=== PATIENT | male | born 1960 | race Caucasian/White ===

== ENCOUNTER 2022-12-17 13:00 | Emergency (ER) | payer BC ==
--- OUTSIDE RECORDS SUMMARY | 2022-12-17 13:04 | XMS REPORT | Continuity of Care Document ---
:1960 Author Organization [facility] t Address [address] [place] [address] Care Team Providers Name Role Phone Floyd GLORIA, Michelle Primary Care Physician Yoel Degroot MD Attending Clinician YOEL DEGROOT Attending Clinician Unavailable Doctor Unassigned, [place] Attending Clinician Unavailable Will Attending Clinician Unavailable SEBASTIAN CHILD Attending Clinician Unavailable Truong Fletcher MD [facility] Attending Clinician Unavailable Michelle Barrientos MD Attending Clinician Will Admitting Clinician Unavailable SEBASTIAN CHILD Admitting Clinician Unavailable Payers Payer Name Policy Type Policy Number Effective Date Expiration Date Kendy gurrola [place] REIRUEL [id number] 2018 00:00:00 BCBS (PPO) Problems Condition Condition Condition Status Onset Resolution Last Treating Co mments Source Name Details Category Date Date Treatment Clinician Date Total Total Problem Active [place] shoulder Shoulder 4-25 Family replacemen Replacemen 00:00: Pr actic t t 00 e Cyst of Cyst of Problem Active [place] thyroid Thyroid 3-12 Family 00:00: Practic 00 e Vitamin D Vitamin D Problem Active Farzana terrance deficiency Deficiency 2-10 Fa carlyle 00:00: Practic 00 e Hyperlipid Hyperlipid Problem Active V illage emia emia 2-10 Family 00:00: Practic 00 e Gastroesop Gastroesop Problem Active V illage hageal hageal 2-10 Family reflux Reflux 00:00: Practic disease Disease 00 e without without esophagiti Esophagiti s s Essential Essential Problem Active Farzana terrance hypertensi Hypertensi 1-13 Fa carlyle on on 00:00: Practic 00 e Essential Essential Disease Active [facility] hypert[facility]i hypertensi 1-21 Trisha kes on on 00:00: Medical 00 Center Benign Benign Problem Active [place] essential Essential 9-11 Fami ly hypertensi Hypertensi 00:00: Pr actic on on e Radiculopa Radiculopa Disease Active [facility] lumbar lumbar 00:00: Medical region region 00 Center Other and Other and Problem Active 2020-11-24 Memoria unspecifie unspecifie 03:45:24 l d d [place] hyperlipid hyperlipid emia emia Active Problem 11/24/2020 [facility] GERD GERD Problem Active 2020-11-24 Memor ia (gastroeso (gastroeso 03:45:24 l phageal phageal [place] reflux reflux disease) disease) Active Problem 11/24/2020 [facility] Vitamin D Vitamin D Problem Active 2020-11-24 Memoria deficiency deficiency 03:45:24 l Active [place] Problem 11/24/2020 [facility] Other Other Problem Active 2020-11-24 Memor ia hyperlipid hyperlipid 03:45:24 l emia emia Von Active Problem 11/24/2020 [facility] Thyroid Thyroid Problem Active 2020-11-24 Me moria cyst cyst 03:45:24 l Active Von Problem 11/24/2020 [facility] Benign Benign Problem Active 2020-11-24 Chavez josé miguel essential essential 03:45:24 l hypertensi hypertensi He rmann on on Active Problem 11/24/2020 [facility] Gastro-eso Gastro-es Problem Active 2020-11-24 Memoria phageal ophageal 03:45:24 l reflux reflux [place] disease disease without without esophagiti esophagiti s s Active Problem 11/24/2020 [facility] Essential Essential Problem Active 2020-11-24 Memoria hypertensi hypertensi 03:45:24 l on on Active Von Problem 11/24/2020 [facility] Left Left Diagnosis Active 2020-09-16 Mem oria shoulder shoulder 03:54:14 l pain pain [place] Active Diagnosis 09/16/2020 [facility] Preoperati Preoperat Diagnosis Active 2020-09-16 Memoria ve nahun 03:54:14 l clearance clearance Herm patti Active Diagnosis 09/16/2020 [facility] Encounter Encounter Diagnosis Active 2020-01-15 Memoria for for 02:45:46 l general general [place] adult adult medical medical examinatio examinatio n without n without abnormal abnormal findings findings Active Diagnosis 01/15/2020 [facility] Screening Screening Diagnosis Active 2019-11-23 Memoria for for 03:46:07 l prostate prostate Bob n cancer cancer Active Diagnosis 11/23/2019 [facility] Former Former Diagnosis Active 2020-01-15 Me moria smoker smoker 02:45:46 l Active Von Diagnosis 01/15/2020 [facility] Herpes Herpes Diagnosis Active 2016-04-06 Me moria simplex simplex 02:48:10 l Active Von Diagnosis 04/06/2016 [facility] No known No known Disease Unive rs active active ity of problems problems [facility] Allergies, Adverse Reactions, Alerts Allergy Allergy Status Severity Reaction(s) Onset Inactive Treating Comm ents Source Name Type Date Date Clinician NO KNOWN Drug Active Univers ALLERGIE Class ity of S [facility] NO KNOWN Allergy Active [facility] Family History Family Member Diagnosis Comments Start Date Stop Date Source Natural father Heart attack [facility] Natural father Hyperlipidemia [facility] Natural mother Hypertension [facility] Social History Social Habit Start Date Stop Date Quantity Comments Source History SDOH [facility] Alcohol Frequency Medical Center History SDOH [facility] Alcohol Std Medical Cente r Drinks History SDOH [facility] Alcohol Binge Medical Kendrick ter Exposure to 2022-04-21 2022-05-01 Not sure University SARS-CoV-2 00:00:00 10:11:00 [facility] (event) Branch Alcohol intake 2018-11-26 2018-11-26 [facility] (finding) TobaccoUse: 2016-04-01 2016-04-01 [facility] 00:00:00 00:00:00 Alcohol Comment 2014-07-29 2014-07-29 [address] [facility] 00:00[facility] 00[facility]00 Medical Center Tobacco use and 2014-07-29 2014-07-[address] [facility]isha kes exposure 00:00:00 00:00:00 Medical Center Sex Assigned At [address] [facility] 00:00:00 00:00:00 Medical Center Smoking Status Start Date Stop Date Source Former Smoker [place] Family P jun Unknown if ever smoked [facility] Never smoker [facility] Medications Ordered Filled Start Stop Current Ordering Indication Dosage Frequency Signature Comments Components Source Medication Medication Date Date Medication? Clinician (SIG) Name Name doxycycline 202- No [id number] 100mg Take 1 Univers hyclate 100 6-26 07-07 tablet by it y of mg tablet 00:00: 04:59 mouth 2 [place] 00 :[place] (two) Medical times Branch daily for 10 days. atorvastati Yes TAKE [facility] (LIPITOR) 2-18 ONE-HALF Luke s 40 MG 00:00: (1/2) Medical tablet 00 TABLET(S) Center BY MOUTH DAILY. atorvastati Yes TAKE [facility] (LIPITOR) 2-18 ONE-HALF Luke s 40 MG 00:00: (1/2) Medical tablet 00 TABLET(S) Center BY MOUTH DAILY. atorvastati Yes TAKE [facility] (LIPITOR) 2-18 ONE-HALF Luke s 40 MG 00:00: (1/2) Medical tablet 00 TABLET(S) Center BY MOUTH DAILY. Hydrochloro Yes Randy 1 tablet Memoria thiazide 1-19 Senan in the l 03:45: morning [place] 24 Hydrochloro 2020-0 Yes Randy 1 tablet Memoria thiazide 1-19 Senan in the l 03:45: morning Von 24 Taltz 2019-11 Yes Randy as Memoria 1-11 Senan directed l 03:54: Atorvastati 2020-1 Yes Randy 1 tablet Memoria n Calcium 1-11 Senan l 03:54: Taltz 2020-1 Yes Randy as Memoria 1-11 Senan directed l 03:54: 14 Atorvastati 2020-1 Yes Randy 1 tablet Memoria n Calcium 1-11 Senan l 03:54: 14 Gabapentin 2020-1 Yes Randy 1 capsule Memoria 1-02 Senan l 00:00: Gabapentin 2020-1 Yes Randy 1 capsule Memoria 1-02 Senan l 00:00: Atorvastati 2020-0 Yes Randy 1/2 tablet Memoria n Calcium 5-15 Senan l 02:46: Atorvastati 2020-0 Yes Randy 1/2 tablet Memoria n Calcium 5-15 Senan l 02:46: [place]-3-aci 2020-0 Yes Randy 2 capsules Memoria d Ethyl 5-14 Senan l Esters 00:00: Atorvastati 2020-0 Yes Randy 1 tablet Memoria n Calcium 5-14 Senan l 00:00: [place]-3-aci 2020-0 Yes Randy 2 capsules Memoria d Ethyl 5-14 Senan l Esters 00:00: Atorvastati 2020-0 Yes Randy 1 tablet Memoria n Calcium 5-14 Senan l 00:00: Lovaza 2020-0 Yes Randy 2 capsules Mem oria 2-10 Senan l 00:00: Vitamin D3 2020-0 Yes Randy 1 capsule Memoria 2-10 Senan l 00:00: Vitamin D3 2020-0 Yes Randy 1 capsule Memoria 2-10 Senan l 00:00: Lovaza 2020-0 Yes Randy 2 capsules Mem oria 2-10 Senan l 00:00: Vitamin D3 2020-0 Yes Randy 1 capsule Memoria 2-10 Senan l 00:00: Vitamin D3 2020-0 Yes Randy 1 capsule Memoria 2-10 Senan l 00:00: atorvastati 2020-0 2020- No TAKE [facility] (LIPITOR) 11-25 ONE-HALF Parminder es 40 MG 00:00: 00:00 (2) Medical tablet 00 :00 TABLET(S) Center BY MOUTH DAILY. atorvastati 2020- No TAKE [facility] (LIPITOR) 11-25 ONE-HALF Parminder es 40 MG 00:00: 00:00 (11/07) Medical tablet 00 :00 TABLET(S) Center BY MOUTH DAILY. Valtrex 2020-0 Yes Randy 1 tablet Chavez josé miguel -18 Chandrasen l 03:46: an Von Nexium 2020-0 Yes Randy 1 capsule Chavez josé miguel [facility] an Von Lisinopril 2020-0 Yes Randy 1 tablet M emoria 11-23 [facility] l 03:46: an Von Zovirax 2020-0 Yes Randy 1 Memoria 11-23 [facility] applicatio l 03:46: an n to Von 07 affected area Valtrex 2020-0 Yes Randy 1 tablet Chavez josé miguel [facility] Von Nexium 2020-0 Yes Randy 1 capsule Chavez josé miguel 18 [facility] 03:[facility]: an Von 07 Lisinopril 2020-0 Yes Randy 1 tablet M emoria 11-[facility] 03:[facility]: an Von 07 Zovirax 2020-0 Yes Randy 1 Memoria 11-23 [facility] applicatio l 03:46: an n to Von 07 affected area Hydrochloro 2020-0 Yes Randy 1 tablet Memoria thiazide 1-13 Senan in the l 00:00: morning Hydrochloro 2020-0 Yes Randy 1 tablet Memoria thiazide 1-13 Senan in the l 00:00: morning Lisinopril 2015-11 Yes Randy 1 tablet M emoria 11-10 [facility] 02[facility] an Von Atorvastati 2015-11 Yes Randy 1 tablet Memoria n Calcium 11-10 [facility] 02:51: an Von Lisinopril 2015-11 Yes Randy 1 tablet M emoria 11-10 Chandrasen l 02:51: an [place] 23 Atorvastati 2015-11 Yes Randy 1 tablet Memoria n Calcium 11-10 Chandrasen l 02:51: an Von 23 Nexium Yes Randy 1 capsule Chavez josé miguel 04-06 Chandrasen l 02:48: an [place] 10 Valtrex Yes Randy 1 tablet Chavez josé miguel 04-06 Chand[place]en l 02:48: an [place] 10 Zovirax Yes Randy 1 Memoria 04-06 Chandrasen applicatio l 02:48: an n to [place] 10 affected area Nexium Yes Randy 1 capsule Chavez josé miguel 04-06 Chand[place]en l 02:48: an [place] Valtrex Yes Randy 1 tablet Chavez josé miguel 04-06 Chand[place]en l 02:48: an [place] Zovirax Yes Randy 1 Memoria 04-06 Chandrasen applicatio l 02:48: an n to [place] [id number] affected area atorvastati atorvastati No 1 Q1D atorvastat Village n 20 mg n 20 mg in 20 mg Famil y tablet Take tablet Take tablet Practic 1 tablet 1 tablet Take 1 e every day every day tablet by oral by oral every day route as route as by oral directed directed route as for 90 for 90 directed days. days. for 90 days. hydrochloro hydrochloro No 1 Q1D [facility] thiazide 25 thiazide 25 othiazide Family mg tablet mg tablet 25 mg Prac tic Take 1 Take 1 tablet e tablet tablet Take 1 every day every day tablet by oral by oral every day route as route as by oral directed directed route as for 90 for 90 directed days. days. for 90 days. ondansetron ondansetron No [facility] 8 mg n 8 mg Family disintegrat disintegrat disintegra Practic ing tablet ing tablet ting e Place 1 Place [address] 1 twice a day twice a day tablet by by twice a translingua translingua day by l route as l route as translingu needed for needed for al route 3 days. 3 days. as needed for 3 days. Ally Canales [facility] Autoinjecto Autoinjecto Autoinject Family r 80 mg/mL r 80 mg/mL or 80 Pr actic subcutaneou subcutaneou mg/mL e s once a s once a subcutaneo month month us once a month Immunizations Ordered Filled Immunization Date Status Comments [facility] e Immunization Name Name JULIETTE 2022-05-01 Completed [facility] 00:00:00 [facility] COVID-19 vaccine, COVID-19 vaccine, 2021-03-05 Completed [facility] vector-nr, vector-nr, 00:00:00 Practice rS-ChAdOx1, PF, 0.5 rS-ChAdOx1, PF, 0.5 mL (AstraZeneca) mL (AstraZeneca) Covid-19 Vaccine 2021-02-[address] [facility] MRNA (PF) 12yr+ 00:00:00 Medical C enter (Pfizer/BioNTech)(I [id number]) Covid-19 Vaccine 2021-02-[address] [facility] Mrna (Pf) 00:00:00 [facility] (Pfizer/biontech) Covid-19 Vaccine 2021-02-[address] [facility] Mrna (Pf) 00:00:00 [facility] (Pfizer/biontech) COVID-19 vaccine, COVID-19 vaccine, 2021-02-19 Completed [facility] vector-nr, vector-nr, 00:00:00 Practice rS-ChAdOx1, PF, 0.5 rS-ChAdOx1, PF, 0.5 mL (AstraZeneca) mL (AstraZeneca) Covid-19 Vaccine 2021-01-[address] [facility] MRNA (PF) 12yr+ 00:00:00 Medical C enter (Pfizer/BioNTech)(I [id number]) Covid-19 Vaccine 2021-01-[address] [facility] Mrna (Pf) 00:00:00 [facility] (Pfizer/biontech) Covid-19 Vaccine 2021-01-[address] [facility] Mrna (Pf) 00:00:00 [facility] (Pfizer/biontech) Flucelvax 2020-08-17 Completed Selwyn Longoria 00:00:00 influenza, influenza, 2020-08-17 Completed [facility] seasonal, seasonal, 00:00:00 Practice intradermal, intradermal, preservative free preservative free Flucelvax 2020-08-17 Completed Carolynor rosaura Longoria 00:00:00 influenza, influenza, 2019-10-17 Completed [facility] seasonal, seasonal, 00:00:00 Practice injectable injectable influenza, influenza, 2015-07-17 Completed [facility] seasonal, seasonal, 00:00:00 Practice injectable, injectable, preservative free preservative free Vital Signs Vital Name Observation Time Observation Value Comments Source Systolic blood 2022-05-01 15:13:00 125 mm[Hg] [facility] Diastolic blood 2022-05-01 15:13:00 82 mm[Hg] Unive rsity [facility] Heart rate 2022-05-01 15:13:00 77 /min [facility] Body temperature 2022-05-01 15:13:00 36.67 [facility] Respiratory rate 2022-05-01 15:13:00 18 /min [facility] height 2022-05-01 15:13:00 182.9 cm [facility] Body weight 2022-05-01 15:13:00 81.647 kg [facility] BMI 2022-05-01 15:13:00 24.41 kg/m2 [facility] Oxygen saturation in 2022-05-01 15:13:00 99 /min [facility] Arterial blood by [facility] Pulse oximetry Branch Height 2021-12-02 00:00:00 72 [in_i] [facility] Practice BMI (Body Mass 2021-12-02 00:00:00 24.4 kg/m2 [facility] Practice Body Weight 2021-12-02 00:00:00 180 [lb_av] [facility] Practice BP Diastolic 2021-07-27 00:00:00 82 mm[Hg] [facility] Practice Height 2021-07-27 00:00:00 72 [in_i] [facility] Practice BMI (Body Mass 2021-07-27 00:00:00 23.8 kg/m2 [facility] Practice BP Systolic 2021-07-27 00:00:00 126 mm[Hg] [facility] Practice Body Weight 2021-07-27 00:00:00 175.6 [lb_av] [facility] Systolic (mm Hg) 2020-08-17 17:00:00 Chavez rial Von Height 2020-08-17 17:00:00 [facility] Weight 2020-08-17 17:00:00 [facility] Von Heart Rate 2020-08-17 17:00:00 [facility] [place] Temperature Oral (F) 2020-08-17 17:00:00 97.3 F [facility] [place] Diastolic (mm Hg) 2020-08-17 17:00:00 Mem orial [place] Systolic (mm Hg) 2019-12-16 13:00:00 Chavez rial Von Height 2019-12-16 13:00:00 [facility] Von Weight 2019-12-16 13:00:00 [facility] Von Heart Rate 2019-12-16 13:00:00 [facility] Von Temperature Oral (F) 2019-12-16 13:00:00 97.9 F [facility] [place] Diastolic (mm Hg) 2019-12-16 13:00:00 Mem orial Von Systolic (mm Hg) 2019-11-18 15:00:00 Chavez rial Von Height 2019-11-18 15:00:00 [facility] Von Weight 2019-11-18 15:00:00 [facility] [place] Heart Rate 2019-11-18 15:00:00 [facility] Von Temperature Oral (F) 2019-11-18 15:00:00 97.8 F [facility] [place] Diastolic (mm Hg) 2019-11-18 15:00:00 Mem orial Von Systolic (mm Hg) 2016-04-01 14:00:00 Chavez rial Von Height 2016-04-01 14:00:00 [facility] [place] Weight 2016-04-01 14:00:00 [facility] [place] Heart Rate 2016-04-01 14:00:00 [facility] Von Temperature Oral (F) 2016-04-01 14:00:00 98.1 F [facility] Diastolic (mm Hg) 2016-04-01 14:00:00 Mem orial [place] Procedures Procedure Date / Time Performed Performing Clinician Sourc e TDAP VACCINE, >11 2022-05-01 15:28:20 Yoel Degroot [facility] YRS, IM Medical Branch CONSENT/REFUSAL FOR 2022-05-01 15:07:20 Doctor Unassigned, No Un [facility] DIAGNOSIS AND Name Medical Branch TREATMENT Shoulder Surgery 2021-02-19 00:00:00 Village Asher flavia Practice Procedure on Shoulder [place] Shanthi carlyle Practice Plan of Care Planned Activity Planned Date Details Comments Source Future Scheduled Test 2022-11-[address] [facility] 00:00:00 (12+) [code = Medical Center DEPRESSION SCREENING (12+)] Future Scheduled Test 2022-07-07 INFLUENZA VACCINE (#1) [facility] 00:00:00 [code = INFLUENZA Medical Ce nter VACCINE (#1)] Future Scheduled Test 2021-11-[address] [facility] 00:00:00 (procedure) [code = [facility] [id number]] Future Scheduled Test 2021-11-[address] [facility] 00:00:00 (procedure) [code = [facility] [id number]] Future Scheduled Test 2021-11-[address] [facility] 00:00:00 (procedure) [code = [facility] [id number]] Future Scheduled Test 2021-07-27 COVID-19 VACCINE (3 - [facility] 00:00:00 Booster for Pfizer Medical C enter series) [code = COVID-19 VACCINE (3 - Booster for Pfizer series)] Future Scheduled Test 2021-07-07 INFLUENZA VACCINE (#1) [facility] 00:00:00 [code = INFLUENZA Medical Ce nter VACCINE (#1)] Future Scheduled Test 2021-07-07 INFLUENZA VACCINE (#1) [facility] 00:00:00 [code = INFLUENZA Medical Ce nter VACCINE (#1)] Future Scheduled Test 2020-11-[address] [facility] 00:00:00 (12+) [code = Medical Center DEPRESSION SCREENING (12+)] Future Scheduled Test 2020-11-[address] [facility] 00:00:00 (12+) [code = Medical Center DEPRESSION SCREENING (12+)] Future Scheduled Test 2011 SHINGLES VACCINES ([address] [facility] 00:00:00 of 2) [code = SHINGLES Medic al Center VACCINES (1 of 2)] Future Scheduled Test 2011 SHINGLES VACCINES ([address] [facility] 00:00:00 of 2) [code = SHINGLES Medic al Center VACCINES (1 of 2)] Future Scheduled Test 2011 SHINGLES VACCINES ([address] [facility] 00:00:00 of 2) [code = SHINGLES Medic al Center VACCINES (1 of 2)] Future Scheduled Test 1980 DTAP/TDAP/TD VACCINES [facility] 00:00:00 (1 - Tdap) [code = Medical C enter DTAP/TDAP/TD VACCINES (1 - Tdap)] Future Scheduled Test 1980 DTAP/TDAP/TD VACCINES [facility] 00:00:00 (1 - Tdap) [code = Medical C enter DTAP/TDAP/TD VACCINES (1 - Tdap)] Future Scheduled Test 1980 DTAP/TDAP/TD VACCINES [facility] 00:00:00 (1 - Tdap) [code = Medical C enter DTAP/TDAP/TD VACCINES (1 - Tdap)] Future Scheduled Test 1979 HEPATITIS C SCREENING [facility] 00:00:00 [code = HEPATITIS C Medical Center SCREENING] Future Scheduled Test 1979 HEPATITIS C SCREENING [facility] 00:00:00 [code = HEPATITIS C Medical Center SCREENING] Future Scheduled Test 1979 HEPATITIS C SCREENING [facility] 00:00:00 [code = HEPATITIS C Medical Center SCREENING] Future Scheduled Test [address] [facility] 00:00:00 Counseling and Medical Cente r Screening (12+) [code = Tobacco Cessation Counseling and Screening (12+)] Future Scheduled Test [address] [facility] 00:00:00 (combo) [code = CT Medical C enter Colonography (combo)] Future Scheduled Test 1960 [facility] malignant neoplasm of Medica l Center colon (procedure) [code = 583412669] Future Scheduled Test 1960 [facility]:00 malignant neoplasm of Medica l Center colon (procedure) [code = 718019632] Future Scheduled Test 1960 [facility] malignant neoplasm of Medica l Center colon (procedure) [code = 318507900] Future Scheduled Test 1960 [facility] malignant neoplasm of Medica l Center colon (procedure) [code = 283111814] Future Scheduled Test 1960 Sigmoidoscopy [code = [facility] 00:00:00 Sigmoidoscopy] Medical Venkata r Future Scheduled Test 1960 [facility] 00:[facility]:00 malignant neoplasm of Medica l Center colon (procedure) [code = 215879072] Future Scheduled Test 1960 [facility] 00:[facility]:00 malignant neoplasm of Medica l Center colon (procedure) [code = 179371233] Instructions [facility] Family Practice Encounters Start End Encounter Admission Attending Care Care Encounter Source Date/Time Date/Time Type Type Clinicians Facility Department ID 2022-05-01 2022-05-01 [facility] [id number] Univers 10:20:00 10:29:27 Care [facility] [id number] it y of [place] [id number] Chema as MEGAN?BLEA [id number] [address] MEDICAL OFFICE BUILDING 2022-05-01 2022-05-01 [facility] [id number] Univers 10:20:00 10:29:27 [facility] 2022-05-01 Orders Doctor MINERVA [id number] Univers 00:00:00 00:00:00 Only Unassigned, [place] [id number] ity of [place] [facility] [id number] Chema as [id number] [address] 2021-12-07 2021-12-07 Outpatient Senan_S VFP [facility] [id number] [facility] 11:44:00 11:44:00 Family Practic e 2021-12-02 2021-12-02 Jahaira Senan_S VFP [place] - [id number] [facility] 00:00:00 00:00:00 JOHN Child: [facility] [id number] Fam flavai [address] [facility], [facility] [address]. [address], [place] ANGEL [phone] , Ph. 2021-12-01 2021-12-01 Outpatient Senan_S VFP VFP [id number] [facility] 08:01:00 08:01:00 [id number] Family Practic e 2021-07-28 2021-07-30 Outpatient MUKUND CHILD MHTW [id number] MHTW 20:28:00 11:30:00 SEBASTIAN 2021-07-27 2021-07-27 Randy Senan_S VFP [place] - [id number] [facility] 00:00:00 00:00:00 MD Beatriz: [facility] [id number] [address]_U_[facility] [address] [facility] [address]. [address] [place] ANG[place] [phone] , Ph. 2021-07-26 2021-07-26 Outpatient Senan_S VFP VFP [id number] [facility] 08:25:00 08:25:00 [id number] Family Practic e 2021-06-28 2021-06-28 Outpatient Senan_S VFP VFP [id number] [facility] 11:51:00 11:51:00 [id number] Family Practic e 2021-02-24 2021-02-24 Immunizati [facility] [id number] 10:21:29 10:29:09 on [facility] 2021-02-24 2021-02-24 Outpatient EL [facility] [id number] [facility] 00:00:00 00:00:00 2021-02-19 2021-02-19 Outpatient Senan_S VFP VFP [id number] [facility] 11:51:00 11:51:00 [id number] Family Practic e 2021-02-17 2021-02-17 Outpatient [facility] [id number] [facility] 00:00:00 00:00:00 2021-02-15 2021-02-16 Outpatient MUKUND CHILD MHTW [id number] MHTW 07:20:00 12:00:00 SEBASTIAN 2021-01-28 2021-01-28 Outpatient [facility] SL [id number] [facility] 00:00:00 00:00:00 2021-01-27 2021-01-27 Immunizati Covid [facility] [id number] 13:06:03 13:16:03 on [facility] 2021-01-27 2021-01-27 Outpatient [facility] [id number] [facility] 00:00:00 00:00:00 2021-01-27 2021-01-27 Outpatient [facility] [id number] [facility] 00:00:00 00:00:00 2020-12-24 2020-12-24 Refill Floyd, [facility] [id number] 00:00:00 00:00:00 [facility] 2020-11-20 2020-11-20 Outpatient [facility] [id number] eClinic 13:05:00 13:05:00 [facility] 2020-09-22 2020-09-22 Outpatient [facility] [id number] eClinic 09:18:00 09:18:00 [facility] 2020-09-03 2020-09-03 Outpatient [facility] [id number] eClinic 10:58:00 10:58:00 [facility] 2020-08-27 2020-08-27 Outpatient [facility] [id number] eClinic 11:01:00 11:01:00 [facility] 2020-08-20 2020-08-20 Outpatient [facility] [id number] eClinic 14:08:00 14:08:00 [facility] 2020-08-19 2020-08-19 Outpatient [facility] [id number] eClinic 17:27:00 17:27:00 [facility] 2020-08-17 2020-08-17 Outpatient [facility] [id number] eClinic 11:00:00 11:00:00 [facility] 2020-08-11 2020-08-11 Outpatient [facility] [id number] eClinic 09:39:00 09:39:00 [facility] 2020-08-05 2020-08-05 Outpatient [facility] [id number] eClinic 12:57:00 12:57:00 [facility] 2020-08-05 2020-08-05 Outpatient [facility] [id number] eClinic 12:57:00 12:57:00 [facility] 2020-08-05 2020-08-05 Outpatient [facility] [id number] eClinic 12:54:00 12:54:00 [facility] 2020-07-30 2020-07-30 Outpatient [facility] [id number] eClinic 09:18:00 09:18:00 [facility] 2020-07-27 2020-07-27 Outpatient [facility] [id number] eClinic 10:55:00 10:55:00 [facility] 2020-06-22 2020-06-22 Outpatient [facility] [id number] eClinic 10:02:00 10:02:00 [facility] 2020-06-22 2020-06-22 Outpatient [facility] [id number] eClinic 09:44:00 09:44:00 [facility] 2020-03-19 2020-03-19 Outpatient [facility] [id number] eClinic 16:50:00 16:50:00 [facility] 2020-03-19 2020-03-19 Outpatient [facility] [id number] eClinic 15:28:00 15:28:00 [facility] 2020-03-19 2020-03-19 Outpatient [facility] [id number] eClinic 15:25:00 15:25:00 [facility] 2020-03-19 2020-03-19 Outpatient [facility] [id number] eClinic 15:20:00 15:20:00 [facility] 2019-12-16 2019-12-16 Outpatient [facility] [id number] eClinic 08:00:00 08:00:00 [facility] 2019-11-18 2019-11-18 Outpatient [facility] [id number] eClinic 10:07:00 10:07:00 [facility] 2019-11-18 2019-11-18 Outpatient [facility] [id number] eClinic 09:01:00 09:01:00 [facility] Medicine [facility] 2019-11-18 2019-11-18 Outpatient [facility] [id number] eClinic 09:00:00 09:00:00 [facility] Medicine [facility] 2016-09-05 2016-09-05 [facility] [id number] Memoria 13:07:00 13:07:00 request r Family [id number] l Medicine, [id number] [facility]. [id number] 2016-09-05 2016-09-05 [facility] [id number] Memoria 13:07:00 13:07:00 request r Family [id number] l Medicine, [id number] [facility]. [id number] 2016-09-05 2016-09-05 Outpatient [facility] [id number] eClinic 08:07:00 08:07:00 [facility], Medicine, [facility]. [facility]. 2016-07-28 2016-07-28 [facility] [id number] [id number] Memoria 18:56:00 18:56:00 Ator[facility] r Family [id number] l in Medicine, [id number] [facility]. [id number] 2016-07-28 2016-07-28 [facility] [id number] d81-f Memoria 18:56:00 18:56:00 Atorvastat r Family [id number] l in Medicine, [id number] [facility] [id number] 2016-07-28 2016-07-28 [facility] [id number] d81-[id number] Memoria 18:56:00 18:56:00 Atorvastat r Family [id number] l in Medicine, [id number] [facility] [id number] 2016-07-28 2016-07-28 [facility] [id number] [id number] Memoria 18:56:00 18:56:00 Atorvastat r Family [id number] l in Medicine, [id number] [facility] [id number] 2016-07-28 2016-07-28 Outpatient [facility] [id number] eClinic 13:56:00 13:56:00 [facility] Medicine, Medicine, [facility]. PLL[facility]. 2016-04-01 2016-04-01 [facility] [id number] [id number] Memoria 14:00:00 14:00:00 symptoms r Family [id number] l and fever Medicine, [id number] [facility]. [id number] 2016-04-01 2016-04-01 [facility] [id number] [id number] Memoria 14:00:00 14:00:00 symptoms r Family [id number] l and fever Medicine, [id number] [facility] [id number] 2016-04-01 2016-04-01 [facility] [id number] 07f-e Memoria 14:00:00 14:00:00 symptoms r Family [id number] l and fever Medicine, [id number] [facility] [id number] 2016-04-01 2016-04-01 [facility] [id number] [id number] Memoria 14:00:00 14:00:00 symptoms r Family [id number] l and fever Medicine, [id number] [facility] [id number] 2016-04-01 2016-04-01 [facility] ac0db e61-3 Memoria 14:00:00 14:00:00 symptoms r Family [id number] l and fever Medicine, 3j0- [facility] [id number] 2016-04-01 2016-04-01 [facility] [id number] 07f-e [facility] 14:00:00 14:00:00 symptoms r Family [id number] l and fever Medicine, [id number] [facility] [id number] 2016-04-01 2016-04-01 Outpatient [facility] [id number] eClinic 09:00:00 09:00:00 [facility]. 2015-07-17 2015-07-17 Med [facility] [id number] Memoria 14:45:00 14:45:00 r [facility] [id number] l Medicine, [id number] [facility]. [id number] 2015-07-17 2015-07-17 Med Refill [facility] 5d [id number] Mem[facility] 14:45:00 14:45:00 r [facility] [id number] l Medicine, [id number] [facility]. [id number] 2015-07-17 2015-07-17 Med Ref[facility] a0 [id number] Memoria 14:45:00 14:45:00 r [facility] [id number] l Medicine, [id number] [facility]. [id number] 2015-07-17 2015-07-17 Med [facility] 5d [id number] [facility] 14:45:00 14:45:00 r [facility] [id number] l Medicine, [id number] [facility]. [id number] 2015-07-17 2015-07-17 Med Refill [facility] c8 [id number] Memoria 14:45:00 14:45:00 r [facility] [id number] l Medicine, [id number] [facility]. [id number] 2015-07-17 2015-07-17 Med [facility] a0 [id number] Memoria 14:45:00 14:45:00 r [facility] [id number] l Medicine, [id number] [facility]. [id number] Results This patient has no known results.
--- NOTE | 2022-12-17 14:17 | RAD REPORT ---
EXAM DESCRIPTION: US - Extremity Venous Uni Ltd - 12/17/2022 2:02 pm CLINICAL HISTORY: Pain COMPARISON: None. TECHNIQUE: Real-time sonographic evaluation of the left lower extremity deep venous system was perfo rmed. FINDINGS: Normal compressibility, flow augmentation, phasic flow and spontaneous flow is identified in the left lower extremity deep venous system. No intraluminal filling defects seen. Skin thickening and subcutaneous edema is present at the left medial ankle. IMPRESSION: No DVT in the left lower extremity.
[2022-12-17] MEDS ORDERED: HYDROCODONE/APAP 5/325 MG TAB ONE (14:36)
[2022-12-17] MEDS ORDERED: DOXYCYCLINE 100 MG CAP PO ONE ×2 (14:36→14:38)
--- NOTE | 2022-12-17 14:53 | RAD REPORT ---
EXAM DESCRIPTION: RAD - Foot Left 3 View - 12/17/2022 2:47 pm CLINICAL HISTORY: Pain COMPARISON: No comparisons FINDINGS/IMPRESSION: No acute fracture. No malalignment. Moderate degenerate changes are present at the first MTP joint. It could reflect gout.
--- NOTE | 2022-12-17 15:01 | ER ---
Nurse's Notes [facility] Name: Elder Lua Age: 62 yrs Sex: Male : 1960 Arrival Date: 12/17/2022 Time: 13:02 Bed 5 Private MD: Diagnosis: Gout, unspecified Presentation: 12/17 13:41 Chief complaint: Patient states: Redness, pain and swelling to R foot that began ss Monday. Pt is unsure, but thinks it could possibly be an insect bite because when he woke up one morning, there was a little spot on his foot that was bleeding. Coronavirus screen: Client denies travel out of the [place] in the last 14 days. Ebola Screen: Patient denies exposure to infectious person. Patient denies travel to an Ebola-affected area in the 21 days before illness onset. Initial Sepsis Screen:. Risk Assessment: Do you want to hurt yourself or someone else? Patient reports no desire to harm self or others. Onset of symptoms was December 13, 2022. 13:41 Method Of Arrival: Ambulatory ss 13:41 Acuity: EZEKIEL 3 ss Historical: - Allergies: 13:46 No Known Allergies; ss - PMHx: 13:46 Hypercholesterolemia; Hypertensive disorder; ss - PSHx: 13:46 R shoulder; ss - Immunization history:: Last tetanus immunization: July 07, 2022. - Social history:: Smoking status: Patient denies any tobacco usage or history of. Screenin:30 [facility] ED Fall Risk Assessment (Adult) History of falling in the last 3 months, ko1 including since admission No falls in past 3 months (0 pts) Confusion or Disorientation No (0 pts) Intoxicated or Sedated No (0 pts) Impaired Gait No (0 pts) Mobility Assist Device Used No (0 pt) Altered Elimination No (0 pt) Score/Fall Risk Level 0 - 2 = Low Risk Oriented to surroundings, Maintained a safe environment, Educated pt \T\ family on fall prevention, incl call for assistance when getting out of bed, Assessed \T\ reinforced patient's understanding of fall precautions, Provided non-skid footwear, Hourly rounding (assess needs \T\ fall precautionary measures) done, Used ambulatory aids as needed (educated on \T\ assisted with), Used gait belt as appropriate. Abuse screen: Denies threats or abuse. Denies injuries from another. Nutritional screening: No deficits noted. Tuberculosis screening: No symptoms or risk factors identified. Assessment: 14:30 General: Appears in no apparent distress. uncomfortable, Behavior is calm, cooperative, ko1 appropriate for age. Pain: Complains of pain in lateral aspect of left foot and left lateral ankle and left fifth toe and left fourth toe and left third toe and left second toe and left first toe and left foot and dorsum of left foot. Neuro: No deficits noted. Cardiovascular: No deficits noted. Respiratory: No deficits noted. GI: No deficits noted. : No deficits noted. EENT: No deficits noted. Derm: Skin is intact, Skin is pink, red, bruised and edematous. Musculoskeletal: No deficits noted. Vital Signs: 13:41 BP 149 / 95; Pulse 90; Resp 16; Temp 98.8(TE); Pulse Ox 100% on R/A; ss 13:45 BP 149 / 95; Pulse 90; Resp 16; Temp 98.8(TE); Pulse Ox 100% on R/A; ss 15:28 BP 132 / 84; Pulse 85; Resp 16; Pulse Ox 99% ; ko1 ED Course: 13:02 Patient arrived in ED. mr 13:31 Marizol Stinson, [facility]. snw 13:31 Trey Renae MD is Attending Physician. snw 13:43 Triage completed. ss 13:45 Arm band placed on right wrist. ss 14:04 US Extremity Venous Unilateral Ltd In Process Unspecified. EDMS 14:28 Callie Diaz, RN is Primary Nurse. ko1 14:30 Patient has correct armband on for positive identification. Bed in low position. Call ko1 light in reach. Pulse ox on. NIBP on. 14:30 No provider procedures requiring assistance completed. ko1 14:49 Foot Left 3 View XRAY In Process Unspecified. EDMS 15:28 Patient did not have IV access during this emergency room visit. ko1 15:28 Crutch training done. ko1 Administered Medications: 14:33 Drug: [place] (HYDROcodone-acetaminophen) 5 mg-325 mg 1 tabs Route: PO; ko1 14:33 Drug: Doxycycline 100 mg Route: PO; ko1 14:37 CANCELLED (Immunization in August): Boostrix Tdap 0.5 ml IM once snw 15:07 Drug: Colcrys (colchicine) 1.2 mg Route: PO; ko1 Medication: 14:30 VIS not applicable for this client. ko1 Outcome: 15:01 Discharge ordered by . snw 15:28 Discharged to home ambulatory, with crutches. ko1 15:28 Condition: stable 15:28 Discharge instructions given to patient, Instructed on discharge instructions, follow up and referral plans. medication usage, Demonstrated understanding of instructions, follow-up care, medications, Prescriptions given X 3. 15:30 Patient left the ED. ko1 Signatures: Dispatcher [employer] EDMS Mraizol Stinson, SUPPLY CHAIN VICE PRESIDENT-C SUPPLY CHAIN VICE PRESIDENT-Csnw AamirMirna mr Andria Robledo, RN RN Callie Patiño, [facility] RN ko1
--- NOTE | 2022-12-17 15:01 | EDPHYS ---
Physician Documentation [facility] Name: Elder Lua Age: 62 yrs Sex: Male : 1960 Arrival Date: 12/17/2022 Time: 13:02 Bed 5 Private MD: ED Physician Trey Renae HPI: 12/17 13:50 This 62 yrs old Male presents to ER via Ambulatory with complaints of Insect Bite. snw 13:50 The patient presents with pain, a puncture wound, swelling, tenderness. The complaints snw affect the left lateral ankle and lateral aspect of left foot. Context: The problem was sustained [place] work. In the hotel on (4days ago), pt noted a puncture to dorsum of left foot, thought something must have bitten him. Flying home yesterday, pt was not able to wear a regular shoe as foot and ankle were so swollen, today with redness. Historical: - Allergies: 13:46 No Known Allergies; ss - PMHx: 13:46 Hypercholesterolemia; Hypertensive disorder; ss - PSHx: 13:46 R shoulder; ss - Immunization history:: Last tetanus immunization: July 07, 2022. - Social history:: Smoking status: Patient denies any tobacco usage or history of. ROS: 13:49 Constitutional: Negative for fever, chills, and weight loss, Eyes: Negative for injury, snw pain, redness, and discharge, ENT: Negative for injury, pain, and discharge, Neck: Negative for injury, pain, and swelling, Cardiovascular: Negative for chest pain, palpitations, and edema, Respiratory: Negative for shortness of breath, cough, wheezing, and pleuritic chest pain, Abdomen/GI: Negative for abdominal pain, nausea, vomiting, diarrhea, and constipation, Back: Negative for injury and pain, : Negative for injury, bleeding, discharge, and swelling, Skin: Negative for injury, rash, and discoloration, Neuro: Negative for headache, weakness, numbness, tingling, and seizure, Psych: Negative for depression, anxiety, suicide ideation, homicidal ideation, and hallucinations. 13:49 MS/Extremity: Negative for injury and deformity. 13:49 Skin: Positive for insect bite to top of left foot on Monday. Exam: 13:47 Constitutional: This is a well developed, well nourished patient who is awake, alert, snw and in no acute distress. Head/Face: Normocephalic, atraumatic. Eyes: Pupils equal round and reactive to light, extra-ocular motions intact. Lids and lashes normal. Conjunctiva and sclera are non-icteric and not injected. Cornea within normal limits. Periorbital areas with no swelling, redness, or edema. Neck: Trachea midline, no thyromegaly or masses palpated, and no cervical lymphadenopathy. Supple, full range of motion without nuchal rigidity, or vertebral point tenderness. No Meningismus. Chest/axilla: Normal chest wall appearance and motion. Nontender with no deformity. No lesions are appreciated. Cardiovascular: Regular rate and rhythm with a normal S1 and S2. No gallops, murmurs, or rubs. Normal PMI, no JVD. No pulse deficits. Respiratory: Lungs have equal breath sounds bilaterally, clear to auscultation and percussion. No rales, rhonchi or wheezes noted. No increased work of breathing, no retractions or nasal flaring. Abdomen/GI: Soft, non-tender, with normal bowel sounds. No distension or tympany. No guarding or rebound. No evidence of tenderness throughout. Back: No spinal tenderness. No costovertebral tenderness. Full range of motion. Neuro: Awake and alert, GCS 15, oriented to person, place, time, and situation. Cranial nerves II-XII grossly intact. Motor strength 5/5 in all extremities. Sensory grossly intact. Cerebellar exam normal. Normal gait. Psych: Awake, alert, with orientation to person, place and time. Behavior, mood, and affect are within normal limits. 13:47 Musculoskeletal/extremity: DVT Exam: swelling, tenderness, erythema, of the dorsum of left foot, left first toe, left second toe, left third toe, left fourth toe and left fifth toe. 13:47 Skin: Appearance: normal except for affected area, cellulitis, that is mild, well demarcated, on the dorsum of left foot, punctate area to mid dorsal aspect of left foot with surrounding edema and erythema. Vital Signs: 13:41 BP 149 / 95; Pulse 90; Resp 16; Temp 98.8(TE); Pulse Ox 100% on R/A; ss 13:45 BP 149 / 95; Pulse 90; Resp 16; Temp 98.8(TE); Pulse Ox 100% on R/A; ss 15:28 BP 132 / 84; Pulse 85; Resp 16; Pulse Ox 99% ; ko1 MDM: 13:27 Patient medically screened. snw 15:03 Differential diagnosis: dislocation, closed fracture, contusion. Data reviewed: vital snw signs, nurses notes, radiologic studies, plain films. Counseling: I had a detailed discussion with the patient and/or guardian regarding: the historical points, exam findings, and any diagnostic results supporting the discharge/admit diagnosis, the presence of at least one elevated blood pressure reading (>120/80) during this emergency department visit, radiology results, the need for outpatient follow up, for definitive care, to return to the emergency department if symptoms worsen or persist or if there are any questions or concerns that arise at home. Special discussion: I have referred the patient to see his PCP for further evaluation of high blood pressure. Based on the history and exam findings, there is no indication for further emergent testing or inpatient evaluation. I discussed with the patient/guardian the need to see the primary care provider for further evaluation of the symptoms. 12/17 13:33 Order name: Foot Left 3 View XRAY; Complete Time: 15:00 snw 12/17 13:33 Order name: US Extremity Venous Unilateral Ltd; Complete Time: 14:18 snw 12/17 15:03 Order name: Crutches; Complete Time: 15:07 snw 12/17 15:03 Order name: Crutch Training; Complete Time: 15:07 snw Administered Medications: 14:33 Drug: [place] (HYDROcodone-acetaminophen) 5 mg-325 mg 1 tabs Route: PO; ko1 14:33 Drug: Doxycycline 100 mg Route: PO; ko1 14:37 CANCELLED (Immunization in August): Boostrix Tdap 0.5 ml IM once snw 15:07 Drug: Colcrys (colchicine) 1.2 mg Route: PO; ko1 Disposition Summary: 12/17/22 15:01 Discharge Ordered Location: Home snw Condition: Stable snw Diagnosis - Gout, unspecified snw Followup: snw - With: Emergency Department - When: As needed - Reason: Worsening of condition Followup: snw - With: Private Physician - When: 2 - 3 days - Reason: Recheck today's complaints, Continuance of care, Re-evaluation by your physician Discharge Instructions: - Discharge Summary Sheet snw - Crutch Use, Adult snw - Gout snw - Low-Purine Eating Plan snw Forms: - Medication Reconciliation Form snw - Thank You Letter snw - Antibiotic Education snw - Prescription Opioid Use snw Prescriptions: - Mobic 7.5 mg Oral Tablet - take 1 tablet by ORAL route once daily take with food; 20 tablet; Refills: 0, snw Product Selection Permitted - Doxycycline Hyclate 100 mg Oral Tablet - take 1 tablet by ORAL route every 12 hours; 20 tablet; Refills: 0, Product snw Selection Permitted - Tylenol-Codeine #3 300 mg-30 mg Oral - take 1 tablet by ORAL route 3-4 times daily; 12 tablet; Refills: 0, Product snw Selection Permitted Signatures: Dispatcher [employer] EDMS Marizol Stinson FNP-C DOG RACES MANAGER-Csnw Andria Robledo RN RN ss Callie Diaz RN RN ko1 Corrections: (The following items were deleted from the chart) 14:37 13:33 Boostrix Tdap 0.5 ml IM once ordered. snw snw 14:37 14:31 Boostrix Tdap 0.5 ml IM once ordered. ko1 snw
[2022-12-17] MEDS ORDERED: COLCHICINE 0.6 MG TAB ONE (15:08)
[2022-12-17 15:33] VITALS: TEMP 98.8
[2022-12-17 15:36] VITALS: BP 132/84; O2SAT 99
== END 2022-12-17 15:30 | disposition home or self-care (01) ==
LOC: ER 13:00
DX: M10.9 Gout, unspecified (principal); L03.116 Cellulitis of left lower limb; I10 Essential (primary) hypertension
CPT/HCPCS: 93971; 99284